=== PATIENT | male | born 1985 | race Caucasian/White ===

== ENCOUNTER 2021-10-21 18:24 | Emergency (ER) | payer BC, MEDICAID ==
[2021-10-21 18:37] VITALS: BP 157/94; PULSE 113
[2021-10-21] MEDS ORDERED: Ketorolac 30 MG/ML SDV IM ONE (18:48)
== END 2021-10-21 19:06 | disposition home or self-care (01) ==
LOC: JP.ED 18:24
DX: M54.50 Low back pain, unspecified (principal); Z72.0 Tobacco use; Z88.0 Allergy status to penicillin; Z88.1 Allergy status to other antibiotic agents
CPT/HCPCS: 96372; 99283; J1885

== ENCOUNTER 2022-09-19 10:36 | Emergency (ER) | payer SELFPAY ==
[2022-09-19] MEDS ORDERED: Doxycycline Susp 25 MG/5 ML 60 ML Bottle PO ONE (11:14)
[2022-09-19 11:50] VITALS: BP 136/83; PULSE 79
== END 2022-09-19 12:30 | disposition home or self-care (01) ==
LOC: JP.ED 10:36
DX: F45.8 Other somatoform disorders (principal); J01.00 Acute maxillary sinusitis, unspecified; R13.12 Dysphagia, oropharyngeal phase; R06.09 Other forms of dyspnea; K21.9 Gastro-esophageal reflux disease without esophagitis; E66.9 Obesity, unspecified; Z68.43 Body mass index [BMI] 50.0-59.9, adult; Z88.1 Allergy status to other antibiotic agents; Z88.8 Allergy status to other drugs, medicaments and biological substances; Z88.0 Allergy status to penicillin; Z87.891 Personal history of nicotine dependence
CPT/HCPCS: 99284

== ENCOUNTER 2022-09-26 18:41 | Emergency (ER) | payer OTHER ==
[2022-09-26 21:22] VITALS: BP 147/89; PULSE 87
== END 2022-09-26 21:25 | disposition home or self-care (01) ==
LOC: JP.ED 18:41
DX: J02.9 Acute pharyngitis, unspecified (principal); K21.9 Gastro-esophageal reflux disease without esophagitis; E66.9 Obesity, unspecified; Z88.1 Allergy status to other antibiotic agents; Z88.0 Allergy status to penicillin; Z88.8 Allergy status to other drugs, medicaments and biological substances; Z88.5 Allergy status to narcotic agent; Z79.899 Other long term (current) drug therapy; Z87.891 Personal history of nicotine dependence; Z87.09 Personal history of other diseases of the respiratory system; Z68.42 Body mass index [BMI] 45.0-49.9, adult
CPT/HCPCS: 36415; 70450; 71046; 71046-26; 80048; 83605; 83735; 85025; 86140; 99284; 99285